=== PATIENT | male | born 1970 | race Caucasian/White ===

== ENCOUNTER → 2016-12-08 | Outpatient (CLI) | payer BC | LOC: FIMAGING 15:35 | PROVIDERS: ATTEND Allergy & Immunology Allergy | DX: R05 Cough (principal); I25.10 Atherosclerotic heart disease of native coronary artery without angina pectoris; K76.89 Other specified diseases of liver; K76.0 Fatty (change of) liver, not elsewhere classified ==

== ENCOUNTER → 2017-05-30 | Outpatient (CLI) | payer BC | LOC: FIMAGING 09:21 | PROVIDERS: ATTEND Allergy & Immunology Allergy | DX: R05 Cough (principal); R07.89 Other chest pain; R93.8 Abnormal findings on diagnostic imaging of other specified body structures ==